=== PATIENT | female | born 1980 | race Hispanic/Latino ===

== ENCOUNTER 2024-05-03 11:26 | Emergency (ER) | payer OTHER ==
[~2024-05-03] VITALS: Ht 157.5 cm; Wt 85.7 kg
[2024-05-03] MEDS ORDERED: ADENOSINE 6MG/2ML 1 ML ONE (11:29)
[2024-05-03] MEDS ORDERED: ADENOSINE 6MG/2ML 2 ML ONE (11:29)
[2024-05-03] MEDS ORDERED: SODIUM CHLORIDE 0.9% 1000ML 1,000 ML ONE (11:30)
[2024-05-03] MEDS: SODIUM CHLORIDE 0.9% 1000ML 1,000 ML IV STA (11:33)
[2024-05-03] MEDS: ADENOSINE 6 MG/2 ML VIAL IV ONE ×2 (11:33→11:35)
[2024-05-03 11:41] LABS: BASOPHILS # (AUTO) 0.1 (0.0-0.1); BASOPHILS % 0.4 % (0.0-1.0); EOSINOPHILS # (AUTO) 0.1 (0.0-0.4); HEMATOCRIT 50.2 % (34.2-44.1); LYMPHOCYTES # (AUTO) 3.8 (1.0-3.2); LYMPHOCYTES % 32.9 % (18.0-39.1); MEAN CORPUSCULAR HEMOGLOBIN 30.4 pg (28-32); MEAN CORPUSCULAR HGB CONC 33.9 g/dL (31-35); MEAN CORPUSCULAR VOLUME 89.6 fL (81-99); MONOCYTES % 8.4 % (4.4-11.3); NEUTROPHILS # (AUTO) 6.5 (2.1-6.9); NEUTROPHILS % 56.9 % (38.7-80.0); PLATELET COUNT 344 x10e3/uL (140-360); RED CELL DISTRIBUTION WIDTH 13.2 % (11.7-14.4)
[2024-05-03] MEDS: METOPROLOL SUCCINATE 25 MG TAB XL PO ONE (12:01)
[2024-05-03 12:04] LABS: INR 1.02
[2024-05-03 12:05] LABS: PARTIAL THROMBOPLASTIN TIME 26.9 seconds (23.8-35.5)
[2024-05-03 12:15] LABS: ALBUMIN 4.4 g/dL (3.5-5.0); ALBUMIN/GLOBULIN RATIO 1.1 (0.8-2.0); ANION GAP 20.2 mmol/L (8-16); BILIRUBIN,TOTAL 0.6 mg/dL (0.2-1.2); CALCIUM 10.3 mg/dL (8.4-10.2); CREATININE, SERUM 0.92 mg/dL (0.57-1.11); MAGNESIUM 1.8 MG/DL (1.3-2.1); TOTAL PROTEIN 8.4 g/dL (6.5-8.1)
[2024-05-03 12:16] LABS: POTASSIUM 3.2 mmol/L (3.5-5.1)
[2024-05-03 12:21] LABS: TROPONIN I 0.002 ng/mL (0-0.300)
[2024-05-03 12:25] VITALS: BP 145/110
[2024-05-03 12:26] VITALS: PULSE 111; RESP 20
[2024-05-03 12:42] VITALS: TEMP 98.2
[2024-05-03 14:05] VITALS: PULSE 100; RESP 12; O2SAT 100
== END 2024-05-03 14:25 | disposition home or self-care (01) ==
LOC: ER 11:32
DX: R06.02 Shortness of breath (principal); I47.10 Supraventricular tachycardia, unspecified; R94.31 Abnormal electrocardiogram [ECG] [EKG]; F17.210 Nicotine dependence, cigarettes, uncomplicated
CPT/HCPCS: 36415; 71045; 80053; 82550; 83735; 83880; 84443; 84484; 85025; 85379; 85610; 85730; 93005; 99284; J0153; J7030